=== PATIENT | female | born 1940 | race Caucasian/White ===

== ENCOUNTER → 2017-01-21 | Outpatient (CLI) | payer MEDICARE, OTHER ==
[~2017-01-21] MED LIST: ASPI-496 PO; CALC-316 PO; CELE200C PO; GLUC500T11 PO; LEVO75TA5 PO; METO25TA35 PO; MULT1TAB60 PO
[2017-01-21 13:54] LABS: HEMATOCRIT 45.6 % (34.6-47.8); HEMOGLOBIN 15.2 g/dL (11.7-16.4); WHITE BLOOD COUNT 7.4 x10^3/uL (3.4-10)
[2017-01-21 13:58] LABS: BLOOD UREA NITROGEN 16 mg/dL (7-18)
[2017-01-21 14:02] LABS: ASPARTATE AMINO TRANSFERASE 16 U/L (15-37)
== END | disposition home or self-care (01) ==
LOC: STAR 12:16
PROVIDERS: ATTEND Orthopaedic Surgery
DX: Z01.818 Encounter for other preprocedural examination (principal); R94.31 Abnormal electrocardiogram [ECG] [EKG]
CPT/HCPCS: 36415; 80053; 81003; 85025; 87081; 87147; 93005

== ENCOUNTER 2017-01-25 11:10 | Inpatient (IN) | payer MEDICARE, OTHER ==
[~2017-01-25] VITALS: Ht 154.9 cm; Wt 82.8 kg
[~2017-01-25 11:10] MED LIST changes: +EPINEPHRINE 1 MG/ML, 1ML ONE; +KETOROLAC 60 MG/2 ML ONE; +ROPIvacaine/PF 0.2%, 20 ML ONE; +SODIUM CHLORIDE 0.9% 50 ML ONE; +TRANEXAMIC ACID 100 MG/ML, 10ML ONE
[2017-01-25] MEDS ORDERED: LACTATED RINGERS 1,000 ML IV SCH (11:37)
[2017-01-25] MEDS ORDERED: VANCOMYCIN PER PHARMACY MC ONE (11:38)
[2017-01-25] MEDS ORDERED: VANCOMYCIN 1,600 MG in SODIUM CHLORIDE 0.9% 250 ML IV ONE (12:00)
[2017-01-25] MEDS ORDERED: LIDOCAINE 1%, 2ML SQ PRN (12:00)
[2017-01-25] MEDS ORDERED: HYDROmorphone 2 MG/ML, 1ML ONE (13:16)
[2017-01-25] MEDS ORDERED: FENTANYL PF 100 MCG/2ML ONE ×2 (13:16→16:40)
[2017-01-25] MEDS ORDERED: PROPOFOL 10 MG/ML, 20ML ONE (14:18)
[2017-01-25] MEDS ORDERED: DEXAMETHASONE 4 MG/ML, 1ML ONE (14:18)
[2017-01-25] MEDS ORDERED: ONDANSETRON 2MG/ML, 2ML ONE (14:18)
[2017-01-25] MEDS ORDERED: METOCLOPRAMIDE 5 MG/ML, 2ML ONE (14:18)
[2017-01-25] MEDS ORDERED: ROCURONIUM 10 MG/ML ONE (14:18)
[2017-01-25] MEDS ORDERED: CEFAZOLIN 1,000 MG ONE (14:18)
[2017-01-25] MEDS ORDERED: LABETALOL 5MG/ML 40ML VIAL ONE (14:18)
[2017-01-25] MEDS ORDERED: FENTANYL PF 100 MCG/2ML IV PRN (15:30)
[2017-01-25] MEDS ORDERED: hydrALAzine 20 MG/ML, 1ML IV PRN (15:30)
[2017-01-25] MEDS ORDERED: PROMETHAZINE 25 MG/ML, 1ML IV PRN (15:30)
[2017-01-25] MEDS ORDERED: OXYcodone 5 MG/5 ML ORAL.SOL UDC PO PRN (15:30)
[2017-01-25] MEDS ORDERED: LABETALOL 5MG/ML, 20ML IV PRN (15:30)
[2017-01-25] MEDS ORDERED: ONDANSETRON 2MG/ML, 2ML IVPush PRN (15:30)
[2017-01-25] MEDS ORDERED: HYDROmorphone 1 MG/ML, 1ML IV PRN ×2 (15:30→16:30)
[2017-01-25] MEDS ORDERED: DIPHENHYDRAMINE 50 MG CAPSULE PO PRN (16:30)
[2017-01-25] MEDS ORDERED: PROMETHAZINE 12.5 MG SUPP PR PRN (16:30)
[2017-01-25] MEDS ORDERED: PROMETHAZINE 25 MG/ML, 1ML IM PRN (16:30)
[2017-01-25] MEDS ORDERED: ZOLPIDEM 5MG TABLET PO PRN (16:30)
[2017-01-25] MEDS ORDERED: MAGNESIUM HYDROXIDE 8%, 30ML UDC PO PRN (16:30)
[2017-01-25] MEDS ORDERED: SENNA/DOCUSATE TABLET PO PRN (16:30)
[2017-01-25] MEDS ORDERED: ONDANSETRON 4 MG TABLET PO PRN (16:30)
[2017-01-25] MEDS ORDERED: OXYcodone IR 5MG TABLET PO PRN (16:30)
[2017-01-25] MEDS ORDERED: HYDROcodone/APAP 5/325 TABLET PO PRN (16:30)
[2017-01-25] MEDS ORDERED: ACETAMINOPHEN 650 MG/20.3 ML UDC PO PRN (16:30)
[2017-01-25] MEDS ORDERED: ONDANSETRON 2MG/ML, 2ML IV PRN (16:30)
[2017-01-25] MEDS ORDERED: DIAZEPAM 5 MG TABLET PO PRN (16:30)
[2017-01-25] MEDS ORDERED: BISACODYL 10 MG SUPP PR PRN (16:30)
[2017-01-25] MEDS ORDERED: ALUMINUM/MAG/SIMETHICONE 30 ML UDC PO PRN (16:30)
[2017-01-25] MEDS ORDERED: ACETAMINOPHEN 325 MG TABLET ONE (16:41)
[2017-01-25] MEDS ORDERED: OXYcodone 5 MG/5 ML ORAL.SOL UDC ONE (16:41)
[2017-01-25] MEDS ORDERED: TRANEXAMIC ACID 1,000 MG in SODIUM CHLORIDE 0.9% 100 ML IVPB ONE (17:00)
[2017-01-25] MEDS ORDERED: VANCOMYCIN PMX 1GM/200ML 200 ML IVPB SCH (18:00)
[2017-01-25] MEDS: ASPIRIN 81 MG TABLET EC PO SCH (18:26)
[2017-01-25] MEDS: D5%-0.45% NACL 1,000 ML IV SCH (18:27)
[2017-01-25] MEDS: HYDROcodone/APAP 5/325 TABLET PO SCH ×2 (18:27→22:30)
[2017-01-25 19:30] VITALS: BP 127/60
[2017-01-25] MEDS: DOCUSATE 100 MG CAPSULE PO SCH (19:42)
[2017-01-25] MEDS: CEFAZOLIN PMX 2GM/50ML 50 ML IVPB SCH (22:10)
[2017-01-26 00:06] VITALS: BP 117/69
[2017-01-26] MEDS: HYDROcodone/APAP 5/325 TABLET PO SCH ×4 (00:11→12:29)
[2017-01-26] MEDS: D5%-0.45% NACL 1,000 ML IV SCH ×2 (00:12→08:12)
[2017-01-26 03:00] VITALS: BP 108/65
[2017-01-26 05:08] LABS: HEMATOCRIT 36.5 % (34.6-47.8); HEMOGLOBIN 12.3 g/dL (11.7-16.4)
[2017-01-26] MEDS: ASPIRIN 81 MG TABLET EC PO SCH (05:35)
[2017-01-26] MEDS: CEFAZOLIN PMX 2GM/50ML 50 ML IVPB SCH (05:36)
[2017-01-26] MEDS ORDERED: DEXAMETHASONE 4 MG/ML, 1ML IVPush SCH (06:00)
[2017-01-26 07:25] VITALS: BP 102/63
[2017-01-26] MEDS: DOCUSATE 100 MG CAPSULE PO SCH (07:55)
[2017-01-26] MEDS ORDERED: LEVOTHYROXINE 75 MCG TABLET PO SCH (09:00)
[2017-01-26] MEDS ORDERED: MULTIVITAMINS/MINERALS TABLET PO SCH (09:00)
[2017-01-26 12:41] VITALS: BP 136/78
[2017-01-26] MEDS ORDERED: KETOROLAC 30 MG/1 ML IV SCH (18:00)
== END 2017-01-26 13:58 | disposition home or self-care (01) | DRG 468 ==
LOC: ORIP 11:10 → 4NOR 17:49
PROVIDERS: ADMIT Orthopaedic Surgery; ATTEND Orthopaedic Surgery
PROC: 0SUA09Z Supplement Right Hip Joint, Acetabular Surface with Liner, Open Approach (ICD-10-PCS; 2017-01-25)
PROC: 0SRR03A Replacement of Right Hip Joint, Femoral Surface with Ceramic Synthetic Substitute, Uncemented, Open Approach (ICD-10-PCS; 2017-01-25)
PROC: 0SPR0JZ Removal of Synthetic Substitute from Right Hip Joint, Femoral Surface, Open Approach (ICD-10-PCS; 2017-01-25)
PROC: 0SP909Z Removal of Liner from Right Hip Joint, Open Approach (ICD-10-PCS; principal; 2017-01-25 14:15)
DX: T84.84XA Pain due to internal orthopedic prosthetic devices, implants and grafts, initial encounter (principal); I10 Essential (primary) hypertension; M70.61 Trochanteric bursitis, right hip; E03.9 Hypothyroidism, unspecified; M19.90 Unspecified osteoarthritis, unspecified site; Z88.2 Allergy status to sulfonamides; Z90.710 Acquired absence of both cervix and uterus; Z79.899 Other long term (current) drug therapy; G89.28 Other chronic postprocedural pain; Y79.2 Prosthetic and other implants, materials and accessory orthopedic devices associated with adverse incidents; T84.89XA Other specified complication of internal orthopedic prosthetic devices, implants and grafts, initial encounter; R78.79 Finding of abnormal level of heavy metals in blood
CPT/HCPCS: 36415; 72170; 85014; 85018; 86850; 86900; J0171; J0690; J1100; J1170; J1885; J2405; J2704; J2795; J3010; J3370; J3490; C1760; C1776; J2765; J7050; J7120